=== PATIENT | male | born 1955 | race African-American/Black ===

== ENCOUNTER 2017-06-12 18:54 | Emergency (ER) | payer SELFPAY ==
[~2017-06-12 18:54] MED LIST: ASPI-1158 PO; ENAL2.5T PO; METO25TA6 PO; UNK MEDS
== END 2017-06-12 21:30 | disposition left against medical advice (07) ==
LOC: ER 21:03
DX: Z53.21 Procedure and treatment not carried out due to patient leaving prior to being seen by health care provider (principal)